=== PATIENT | female | born 1990 | race Caucasian/White ===

== ENCOUNTER 2017-05-14 06:06 | Inpatient (IN) | payer OTHER ==
[2017-05-14] MEDS ORDERED: ELECTROLYTE-148 SOLN 1,000 ML IV SCH ×3 (06:10→08:30)
[2017-05-14 06:48] VITALS: BMI 35.8
[2017-05-14] MEDS ORDERED: CITRIC ACID/SODIUM CITRATE 30 ML UNIT-DOSE CUP PO ONE (07:00)
[2017-05-14] MEDS ORDERED: ELECTROLYTE-148 SOLN 500 ML IV ONE (07:00)
[2017-05-14] MEDS ORDERED: morphine SULFATE/Preservative Free 0.5 MG/ML (1cc Syringe) ONE (08:16)
[2017-05-14] MEDS ORDERED: ceFAZolin SODIUM 1 GM VIAL ONE (08:17)
[2017-05-14] MEDS ORDERED: IBUPROFEN 600 MG TABLET (FP) PO PRN (08:20)
[2017-05-14] MEDS ORDERED: IBUPROFEN 800 MG/8 ML IJ IVPB PRN (08:20)
[2017-05-14] MEDS ORDERED: METHYLERGONOVINE MALEATE 0.2 MG/1 ML AMP IM PRN (08:20)
--- NOTE | 2017-05-14 08:30 | HP ---
Past Medical History - Primary Care Physician PCP:: Danyell Kang - Admission Chief Complaint: Cholestatis. Prev Section X2 History of Present Illness: 26 yo with prev CS x2 Cholestasis of c/o itching MFM recomended delivery yester after rising bile salts HIV neg GBS History Source: Patient - Past Medical History ...: 3 ...Para: 2 ...Term: 0 ...: 2 ...Spon : 0 ...Induced : 0 ...Multiple Gestation: 0 ...LMP: 10/05/16 ...EDC by Sono: 05/25/17 - Past Surgical History Past Surgical History: Yes: Hx Myomectomy: No Hx Transabdominal Cerclage: No - Smoking History Smoking history: Never smoked Have you smoked in the past 12 months: No - Alcohol/Substance Use Hx Alcohol Use: No - Social History Usual Living Arrangement: Yes: With Spouse History of Recent Travel: No Home Medications - Allergies Allergies/Adverse Reactions: Allergies Allergy/AdvReac Type Severity Reaction Status Date / Time No Known Allergies Allergy Verified 05/14/17 06:31 - Home Medications Home Medications: Ambulatory Orders Aspirin [Adult Aspirin Regimen] 81 mg PO DAILY 05/12/17 Vit/Iron Fum/Folic AC [ Tablet] 1 each PO DAILY 05/14/17 Physical Exam - Maternity Vital Signs: Vital Signs Temperature 98.2 F 05/14/17 06:38 Pulse Rate 87 05/14/17 06:38 Respiratory Rate 20 05/14/17 06:38 Blood Pressure 127/78 05/14/17 06:38 O2 Sat by Pulse Oximetry (%) Constitutional: Yes: Well Nourished, No Distress Problem List - Problems (1) Cholestasis during in third trimester Code(s): O26.613 - LIVER AND BILIARY TRACT DISORD IN , THIRD TRIMESTER ; K83.1 - OBSTRUCTION OF BILE DUCT (2) Previous delivery, antepartum Code(s): O34.219 - MATERNAL CARE FOR UNSP TYPE SCAR FROM PREVIOUS DEL Assessment/Plan Cholestasis IUp at 38.4 Previous CS x2 multiparitity voluntary sterilization Plan Repeat CS bilateral Salpingectomy
[2017-05-14] MEDS ORDERED: OXYTOCIN 10 UNITS/ML VIAL ONE ×2 (08:36→08:49)
[2017-05-14] MEDS ORDERED: ACETAMINOPHEN 1000 MG/100 ML VIAL (NON FORMULARY) IVPB PRN (09:21)
[2017-05-14 09:28] LABS: ARTERIAL BLOOD GAS PCO2 51.4 mmHg (35-45); ARTERIAL BLOOD GAS PO2 23.3 mmHg (80-100); ARTERIAL BLOOD GAS pH 7.28 (7.35-7.45)
[2017-05-14 09:29] LABS: ALLENS TEST POSITIVE; ARTERIAL BLD GAS O2 SATURATION 47.4 % (90-98.9); ARTERIAL BLOOD GAS BASE EXCESS -3.3 meq/l (-2-2)
[2017-05-14 09:30] LABS: VENOUS PH 7.33 (7.32-7.42); VENOUS PO2 26.7 mmHg (28-48)
[2017-05-14] MEDS ORDERED: TUBERCULIN PPD 5 TU/0.1ML SYRINGE (IN PATIENT USE ONLY) ID ONE (10:00)
[2017-05-14] MEDS ORDERED: OXYTOCIN 20 UNITS in 0.9% NS 20 UNIT/1,000 ML INFUS.BAG IV ONE (10:29)
[2017-05-14] MEDS: OXYTOCIN 20 UNITS in 0.9% NS 20 UNIT/1,000 ML INFUS.BAG IV SCH ×2 (10:30→18:45)
--- NOTE | 2017-05-14 10:45 | OP ---
DATE OF OPERATION: 05/14/2017 PREOPERATIVE DIAGNOSES: 1. Cholestasis, intrauterine at 38.4 weeks, and previous section x2. 2. Voluntary sterilization, multiparity. OPERATION: Repeat section and bilateral salpingectomy. SURGEON: Danyell Kang MD OFFICE AUDITOR: ARIA Mcnamara; MD unavailable. ANESTHESIA: Spinal. ANESTHESIOLOGIST: Guille Madera MD FINDINGS: Live female infant delivered. DESCRIPTION OF PROCEDURE: Patient was taken to the operating room, placed in supine position, prepped and draped in the usual sterile fashion. Timeout was performed in accordance with hospital regulation. Scalpel was then used to remove the patient's previous scar and make a Pfannenstiel skin incision. Cautery was then used to go through the layers of abdominal wall to the level of the fascia. Fascia was cut in the midline, and cautery was then used to open the fascia in the following fashion. Freya was then used to bluntly and sharply dissect the rectus muscle off the fascia. Muscles split in the midline. Peritoneal cavity was then entered and carried upward and downward. Bladder retractor was then placed. Vesicouterine reflection was then entered. Bladder was bluntly dissected out of the operative field. Scalpel was then used to make a low transverse uterine incision. Incision was carried upward using bandage scissors. A live female infant was delivered in OT position. Nose and mouth suction performed. Shoulders were delivered without difficulty. Cord was clamped and cut. Cord pH obtained. Cord blood obtained. was handed to staff development coordinator rn. Uterus exteriorized and cleaned with clean laparotomy pad. Uterine incision closed using 0 Biosyn suture, first layer of continuous and locking, second layer imbricating the first layer. Hemostasis was achieved. Tubes were noted to be bilaterally normal. LigaSure was then used to bilaterally perform a salpingectomy, making sure to coagulate the ends where the uterus was for further hemostasis. After hemostasis was achieved and bilateral salpingectomy performed, uterus interiorized. Tubes' removal incision site was then checked bilaterally. Abdominal sweep done. Peritoneum closed using 0 Biosyn suture. Fascia was then closed using 0 Vicryl suture in 2 parts. Subcutaneous was then closed using 0 Biosyn suture in a continuous fashion. Skin was then closed using 3-0 Vicryl in subcuticular fashion. Wound was washed and dressed. Estimated blood loss: 500 mL. Steri-Strips placed. Patient tolerated the procedure well, was taken to recovery room in stable condition. Mayco [id number] MTDD
--- NOTE | 2017-05-14 11:06 | OP ---
Operative Note - Note: Operative Date: 05/14/17 Pre-Operative Diagnosis: Cholestasis. Previous CS X 2. voluntary sterilization. multiparity. IUP at 38.4 weeks Operation: Repeat Section. Bilateral salpingectomy. lysis of adhesions Findings: Live female infant normal fallopian tubes and ovaries Post-Operative Diagnosis: Same as Pre-op Surgeon: Danyell Kang Supervisor Boat Outfitting: Armand Ferguson Anesthesiologist/BRAZE OPERATOR: Guille Madera Anesthesia: Spinal Estimated Blood Loss (mls): 500 Operative Report Dictated: Yes
[2017-05-14] MEDS: ONDANSETRON 4 MG/2 ML VIAL IVPUSH PRN ×2 (13:01→19:59)
[2017-05-14] MEDS: METOCLOPRAMIDE HCL INJECTION 10 MG/2 ML VIAL IVPUSH PRN ×2 (15:22→21:54)
[2017-05-15 08:15] LABS: BASO % 0.2 % (0-2.0); EOS % 0.3 % (0-4.5); HEMATOCRIT 23.8 % (32.4-45.2); HEMOGLOBIN 7.5 GM/dL (10.7-15.3); LYMPH % 19.2 % (8-40); MCHC 31.7 g/dl (32.0-36.0); MEAN CELL VOLUME 69.5 fl (80-96); MEAN PLT VOLUME 8.7 fl (7.5-11.1); MONO % 5.6 % (3.8-10.2); NEUT % 74.7 % (42.8-82.8); PLATELET COUNT 165 K/MM3 (134-434); RBC 3.42 M/mm3 (3.60-5.2); RDW 17.3 % (11.6-15.6); WHITE BLOOD COUNT 10.3 K/mm3 (4.0-10.0)
[2017-05-15] MEDS ORDERED: oxyCODONE HCL 5 MG TABLET PO PRN (08:20)
[2017-05-15] MEDS: oxyCODONE HCL 5 MG TABLET PO PRN ×2 (08:26→14:19)
[2017-05-15] MEDS: SIMETHICONE 80 MG TAB.CHEW (FP) PO PRN ×3 (08:27→19:55)
[2017-05-15] MEDS: PRENATAL VITAMINS W/ FOLIC ACID TABLET (FP) PO SCH (09:15)
[2017-05-15] MEDS: FERROUS SO4 325 MG TABLET (FP) PO SCH ×2 (09:15→21:59)
--- NOTE | 2017-05-15 09:24 | PN ---
Progress Note (SOAP) - Subjective Chief Complaint: Pt doing well - Current Medications Current Medications: Active Medications Bisacodyl (Dulcolax Suppository -) 10 mg RC PRN PRN PRN Reason: CONSTIPATION Diphenhydramine HCl (Benadryl Injection -) 25 mg IVPUSH Q4H PRN PRN Reason: FOR ITCHING Diphtheria/Tetanus/Acell Pertussis (Boostrix -) 0.5 ml IM .ONCE ONE Stop: 05/15/17 09:01 Ferrous Sulfate (Feosol -) 325 mg PO BID [facility] Last Admin: 05/15/17 09:15 Dose: Not Given Parenteral Electrolytes (Plasma-Lyte 148 -) 1,000 mls @ 125 mls/hr IV ASDCOUNTS INCLUDE 234 BEDS AT THE [facility] Last Admin: 05/14/17 07:30 Dose: 125 mls/hr Oxytocin/Sodium Chloride (Normal Saline+20 Units Oxytocin -) 20 unit in 1,000 mls @ 125 mls/hr IV ASDCOUNTS INCLUDE 234 BEDS AT THE [facility] Last Admin: 05/14/17 18:45 Dose: 125 mls/hr Parenteral Electrolytes (Plasma-Lyte 148 -) 1,000 mls @ 125 mls/hr IV [facility] Methylergonovine Maleate (Methergine Injection -) 0.2 mg IM Q4H PRN PRN Reason: Excessive Bleeding (L&D) Metoclopramide HCl (Reglan Injection -) 10 mg IVPUSH Q8H PRN PRN Reason: NAUSEA AND/OR VOMITING Last Admin: 05/14/17 21:54 Dose: 10 mg Oxycodone HCl (Roxicodone -) 5 mg PO Q4H PRN PRN Reason: PAIN LEVEL 4 - 6 Last Admin: 05/15/17 08:26 Dose: 5 mg Oxycodone HCl (Roxicodone -) 10 mg PO Q4H PRN PRN Reason: PAIN LEVEL 7 - 10 Multivit/Folic Acid/Iron ( Vitamins (Sjr) -) 1 tab PO DAILY [facility] Last Admin: 05/15/17 09:15 Dose: Not Given Simethicone (Mylicon -) 80 mg PO Q4H PRN PRN Reason: GAS Last Admin: 05/15/17 08:27 Dose: 80 mg - Objective Vital Signs: Vital Signs Temperature 98.8 F 05/15/17 06:00 Pulse Rate 76 05/15/17 06:00 Respiratory Rate 18 05/15/17 06:00 Blood Pressure 127/71 05/15/17 06:00 O2 Sat by Pulse Oximetry (%) 100 05/14/17 10:50 Constitutional: Yes: Well Nourished, No Distress Gastrointestinal: Yes: WNL, Soft, Abdomen, Obese ....Post : Yes: Uterus firm, Uterus non-tender Musculoskeletal: Yes: WNL Extremities: Yes: WNL Edema: No Wound/Incision: Yes: Clean/Dry, Well Approximated, Steri Strips, Open to air, Dressing Removed Labs Lab Results: CBC, BMP 05/15/17 07:30 Problem List - Problems (1) Cholestasis during in third trimester Code(s): O26.613 - LIVER AND BILIARY TRACT DISORD IN , THIRD TRIMESTER ; K83.1 - OBSTRUCTION OF BILE DUCT (2) Previous delivery, antepartum Code(s): O34.219 - MATERNAL CARE FOR UNSP TYPE SCAR FROM PREVIOUS DEL Assessment/Plan SP CS POD1 Stable anemia Plan OOB percocet
--- NOTE | 2017-05-15 09:40 | PN ---
Progress Note (short form) - Note Progress Note: Anesthesia/pain Pt seen and examined S:alert and awake comfortable O: Vital Signs Temperature 98.8 F 05/15/17 06:00 Pulse Rate 76 05/15/17 06:00 Respiratory Rate 18 05/15/17 06:00 Blood Pressure 127/71 05/15/17 06:00 O2 Sat by Pulse Oximetry (%) 100 05/14/17 10:50 CBC, BMP 05/15/17 07:30 A/P: Current Active Problems Cholestasis during in third trimester (Acute) Previous delivery, antepartum (Acute) s/p c section Doing well post op Continue current care Luis Cesar MD
[2017-05-15] MEDS ORDERED: DIPHTH,PERTUSS(ACELL),TET 0.5 ML DISP.SYRIN IM ONE (16:30)
[2017-05-15] MEDS: DOCUSATE SODIUM 100 MG CAPSULE (FP) PO PRN (17:55)
[2017-05-15] MEDS: BISACODYL 10 MG SUPP.RECT RC PRN (21:50)
[2017-05-16] MEDS: FERROUS SO4 325 MG TABLET (FP) PO SCH ×2 (09:43→21:39)
[2017-05-16] MEDS: PRENATAL VITAMINS W/ FOLIC ACID TABLET (FP) PO SCH (09:43)
[2017-05-16] MEDS: SIMETHICONE 80 MG TAB.CHEW (FP) PO PRN ×2 (12:55→17:42)
[2017-05-16] MEDS: oxyCODONE HCL 5 MG TABLET PO PRN ×2 (12:55→17:41)
--- NOTE | 2017-05-16 23:41 | PN ---
Progress Note (SOAP) - Subjective Chief Complaint: Pt doing well - Current Medications Current Medications: Active Medications Bisacodyl (Dulcolax Suppository -) 10 mg RC PRN PRN PRN Reason: CONSTIPATION Last Admin: 05/15/17 21:50 Dose: 10 mg Diphenhydramine HCl (Benadryl Injection -) 25 mg IVPUSH Q4H PRN PRN Reason: FOR ITCHING Docusate Sodium (Colace -) 100 mg PO BID PRN PRN Reason: CONSTIPATION Last Admin: 05/15/17 17:55 Dose: 100 mg Ferrous Sulfate (Feosol -) 325 mg PO BID [facility] Last Admin: 05/16/17 21:39 Dose: 325 mg Parenteral Electrolytes (Plasma-Lyte 148 -) 1,000 mls @ 125 mls/hr IV [facility]IR [facility] Last Admin: 05/14/17 07:30 Dose: 125 mls/hr Oxytocin/Sodium Chloride (Normal Saline+20 Units Oxytocin -) 20 unit in 1,000 mls @ 125 mls/hr IV ASDIR [facility] Last Admin: 05/14/17 18:45 Dose: 125 mls/hr Parenteral Electrolytes (Plasma-Lyte 148 -) 1,000 mls @ 125 [facility]ls[facility] Methylergonovine Maleate (Methergine Injection -) 0.2 mg IM Q4H PRN PRN Reason: Excessive Bleeding (L&D) Metoclopramide HCl (Reglan Injection -) 10 mg IVPUSH Q8H PRN PRN Reason: NAUSEA AND/OR VOMITING Last Admin: 05/14/17 21:54 Dose: 10 mg Oxycodone HCl (Roxicodone -) 5 mg PO Q4H PRN PRN Reason: PAIN LEVEL 4 - 6 Last Admin: 05/16/17 17:41 Dose: 5 mg Oxycodone HCl (Roxicodone -) 10 mg PO Q4H PRN PRN Reason: PAIN LEVEL 7 - 10 Last Admin: 05/15/17 19:55 Dose: 10 mg Multivit/Folic Acid/Iron ( Vitamins (Sjr) -) 1 tab PO DAILY [facility] Last Admin: 05/16/17 09:43 Dose: 1 tab Simethicone (Mylicon -) 80 mg PO Q4H PRN PRN Reason: GAS Last Admin: 05/16/17 17:42 Dose: 80 mg - Objective Vital Signs: Vital Signs Temperature 97.8 F 05/16/17 22:00 Pulse Rate 75 05/16/17 22:00 Respiratory Rate 18 05/16/17 22:00 Blood Pressure 133/85 05/16/17 22:00 O2 Sat by Pulse Oximetry (%) 100 05/14/17 10:50 Constitutional: Yes: Well Nourished, No Distress Respiratory: Yes: WNL Gastrointestinal: Yes: WNL, Normal Bowel Sounds ....Post : Yes: Uterus firm, Uterus non-tender Breast(s): Yes: WNL Musculoskeletal: Yes: WNL Extremities: Yes: WNL Edema: Yes Wound/Incision: Yes: Clean/Dry, Well Approximated Neurological: Yes: WNL, Alert, Oriented Labs Lab Results: CBC, BMP 05/15/17 07:30 Problem List - Problems (1) Cholestasis during in third trimester Code(s): O26.613 - LIVER AND BILIARY TRACT DISORD IN , THIRD TRIMESTER ; K83.1 - OBSTRUCTION OF BILE DUCT (2) Previous delivery, antepartum Code(s): O34.219 - MATERNAL CARE FOR UNSP TYPE SCAR FROM PREVIOUS DEL (3) Anemia, Code(s): O90.81 - ANEMIA OF THE PUERPERIUM Assessment/Plan SP CS POD 2 Stable anemia Plan OOB percocet
[2017-05-17 08:27] LABS: BASO % 0.4 % (0-2.0); EOS % 2.3 % (0-4.5); HEMATOCRIT 25.1 % (32.4-45.2); HEMOGLOBIN 7.7 GM/dL (10.7-15.3); LYMPH % 30.6 % (8-40); MCH 21.7 pg (25.7-33.7); MCHC 30.7 g/dl (32.0-36.0); MEAN CELL VOLUME 70.4 fl (80-96); MEAN PLT VOLUME 8.5 fl (7.5-11.1); MONO % 5.1 % (3.8-10.2); NEUT % 61.6 % (42.8-82.8); PLATELET COUNT 179 K/MM3 (134-434); RBC 3.56 M/mm3 (3.60-5.2); RDW 17.8 % (11.6-15.6); WHITE BLOOD COUNT 8.3 K/mm3 (4.0-10.0)
[2017-05-17] MEDS ORDERED: ACETAMINOPHEN 325 MG TABLET (FP) ONE (09:11)
[2017-05-17] MEDS: SIMETHICONE 80 MG TAB.CHEW (FP) PO PRN ×2 (09:27→18:45)
[2017-05-17] MEDS: FERROUS SO4 325 MG TABLET (FP) PO SCH ×2 (09:27→22:30)
[2017-05-17] MEDS: ACETAMINOPHEN 325 MG TABLET (FP) PO PRN ×2 (09:27→18:45)
[2017-05-17] MEDS: PRENATAL VITAMINS W/ FOLIC ACID TABLET (FP) PO SCH (09:28)
[2017-05-17] MEDS: oxyCODONE HCL 5 MG TABLET PO PRN (09:28)
[2017-05-17] MEDS: IBUPROFEN 600 MG TABLET (FP) PO PRN (18:45)
[2017-05-17] MEDS: DOCUSATE SODIUM 100 MG CAPSULE (FP) PO PRN (22:30)
--- NOTE | 2017-05-17 23:25 | PN ---
Progress Note (SOAP) - Subjective Chief Complaint: Pt doing good - Current Medications Current Medications: Active Medications Acetaminophen (Tylenol -) 650 mg PO Q4H PRN PRN Reason: PAIN 1-10 Last Admin: 05/17/17 18:45 Dose: 650 mg Bisacodyl (Dulcolax Suppository -) 10 mg RC PRN PRN PRN Reason: CONSTIPATION Last Admin: 05/15/17 21:50 Dose: 10 mg Diphenhydramine HCl (Benadryl Injection -) 25 mg IVPUSH Q4H PRN PRN Reason: FOR ITCHING Docusate Sodium (Colace -) 100 mg PO BID PRN PRN Reason: CONSTIPATION Last Admin: 05/17/17 22:30 Dose: 100 mg Ferrous Sulfate (Feosol -) 325 mg PO BID [facility] Last Admin: 05/17/17 22:30 Dose: 325 mg Ibuprofen (Motrin -) 600 mg PO Q4H PRN PRN Reason: PAIN 1-10 Last Admin: 05/17/17 18:45 Dose: 600 mg Methylergonovine Maleate (Methergine Injection -) 0.2 mg IM Q4H PRN PRN Reason: Excessive Bleeding (L&D) Metoclopramide HCl (Reglan Injection -) 10 mg IVPUSH Q8H PRN PRN Reason: NAUSEA AND/OR VOMITING Last Admin: 05/14/17 21:54 Dose: 10 mg Oxycodone HCl (Roxicodone -) 5 mg PO Q4H PRN PRN Reason: PAIN LEVEL 4 - 6 Last Admin: 05/17/17 09:28 Dose: 5 mg Oxycodone HCl (Roxicodone -) 10 mg PO Q4H PRN PRN Reason: PAIN LEVEL 7 - 10 Last Admin: 05/15/17 19:55 Dose: 10 mg Multivit/Folic Acid/Iron ( Vitamins (Sjr) -) 1 tab PO DAILY [facility] Last Admin: 05/17/17 09:28 Dose: 1 tab Simethicone (Mylicon -) 80 mg PO Q4H PRN PRN Reason: GAS Last Admin: 05/17/17 18:45 Dose: 80 mg - Objective Vital Signs: Vital Signs Temperature 98.3 F 05/17/17 08:36 Pulse Rate 75 02/24/18 08:36 Respiratory Rate 18 05/17/17 08:36 Blood Pressure 131/84 05/17/17 08:36 O2 Sat by Pulse Oximetry (%) 100 05/17/17 08:35 Constitutional: Yes: Well Nourished, No Distress Cardiovascular: Yes: WNL Respiratory: Yes: WNL Gastrointestinal: Yes: WNL, Normal Bowel Sounds, Soft ....Post : Yes: Uterus firm, Uterus non-tender Musculoskeletal: Yes: WNL Extremities: Yes: WNL Wound/Incision: Yes: Clean/Dry, Well Approximated, Steri Strips, Open to air Neurological: Yes: WNL, Alert Labs Lab Results: CBC, BMP 05/17/17 07:20 Problem List - Problems (1) Cholestasis during in third trimester Code(s): O26.613 - LIVER AND BILIARY TRACT DISORD IN , THIRD TRIMESTER ; K83.1 - OBSTRUCTION OF BILE DUCT (2) Previous delivery, antepartum Code(s): O34.219 - MATERNAL CARE FOR UNSP TYPE SCAR FROM PREVIOUS DEL (3) Anemia, Code(s): O90.81 - ANEMIA OF THE PUERPERIUM Assessment/Plan POD 3 Stable +flatus +BM Plan Continue present management percocet
[2017-05-17] MEDS: BISACODYL 10 MG SUPP.RECT RC PRN (23:32)
[2017-05-18] MEDS: SIMETHICONE 80 MG TAB.CHEW (FP) PO PRN (08:05)
[2017-05-18] MEDS: ACETAMINOPHEN 325 MG TABLET (FP) PO PRN (08:05)
[2017-05-18] MEDS: IBUPROFEN 600 MG TABLET (FP) PO PRN (08:06)
--- NOTE | 2017-05-18 08:26 | DS ---
Physical Exam-HEEL LIFT GOUGER Vital Signs: Vital Signs Temperature 98.0 F 05/17/17 22:00 Pulse Rate 70 05/17/17 22:00 Respiratory Rate 18 05/17/17 22:00 Blood Pressure 123/75 05/17/17 22:00 O2 Sat by Pulse Oximetry (%) 100 05/17/17 08:35 Constitutional: Yes: Well Nourished, No Distress Neck: Yes: WNL Cardiovascular: Yes: WNL Respiratory: Yes: WNL Gastrointestinal: Yes: WNL, Normal Bowel Sounds, Soft, Abdomen, Obese ....Post : Yes: Uterus firm, Uterus non-tender, Slight lochia rubra Breast(s): Yes: WNL Musculoskeletal: Yes: WNL Extremities: Yes: WNL Edema: Yes Edema: LLE: Trace, RLE: Trace Wound/Incision: Yes: Clean/Dry, Well Approximated, Steri Strips Neurological: Yes: WNL, Alert, Oriented Labs: CBC, BMP 05/17/17 07:20 Delivery - Delivery Section: Repeat, Low Flap Transverse Type of Anesthesia: Spinal Episiotomy/Laceration: None EBL (cc): 500 Delivery, Single - Stages of Labor Date of Delivery: 05/14/17 Time of Delivery: 08:45 Time Placenta Delivered: 08:46 Placenta: Yes: Manual Removal - Condition of Brine Supervisor/Deputy District Customs Director Present: No Gender: Female Weight: 7 lb 3 oz Position: OT Total Hours ROM (Hrs/Mins): 0/2 - 1 Minute Total Score: 8 5 Minutes Total Score: 9 - [place] Feeding Plan Initial Plan: Elected not to breastfeed exclusively throughout hospitalization Discharge Summary Reason For Visit: ADMIT C/SECTION Current Active Problems Anemia, (Acute) Cholestasis during in third trimester (Acute) Previous delivery, antepartum (Acute) Procedures: Principal: Repeat sECTION Other Procedures: Bilateral salpingectomy Condition: Good - Instructions Diet, Activity, Other Instructions: Dr. Danyell Kang [employer] discharge instructions Physical activity Resume your normal everyday activity as tolerated no heavy lifting or exercise until seen by your surgeon. You may walk unlimited cecil of and climb stairs. You may resume driving the car when you feel safe and comfortable behind the wheel. No sexual activity as instructed by Dr. Kang. Wound care If you have a bandage, leave it on, and keep dry for 48-72 hours. After that time discard the outer bandage. If they are tapes on the skin under the out of bandage leave them in place. They will peel off in the next 7 to 10 days. Do Not Peel them off. You may shower the day after surgery. If there are tapes present on the skin, you may shower over them. Diet There are no dietary restrictions. Eat healthy, high-fiber foods. Drink 6 to 8 glasses of liquid each day. This will assist in keeping your bowels are regular. Pain management You may take Tylenol or acetaminophen or Ibuprofen (for example, Motrin, Advil etc.) from my pain prescription medication is ordered should be taken as prescribed for moderate to severe pain. Call Dr. Kang for any of the following: Severe pain not relieved by medication Fever of 101 or higher Excessive bleeding or drainage on dressing Inability to urinate Call the office at [phone] for an appointment in seven days. Referrals: Danyell Kang MD [Staff Physician] - Disposition: HOME - Home Medications Comprehensive Discharge Medication List: Ambulatory Orders Aspirin [Adult Aspirin Regimen] 81 mg PO DAILY 05/12/17 Ferrous Sulfate [Feosol] 325 mg PO TID #21 tablet 05/14/17 Vit/Iron Fum/Folic AC [ Tablet] 1 each PO DAILY 05/14/17 Ibuprofen [Motrin -] 600 mg PO QID #28 tablet 05/17/17 Oxycodone HCl/Acetaminophen [Percocet 5-325 mg Tablet] 1 - 2 tab PO Q6H #20 tab MDD 6 05/17/17
[2017-05-18] MEDS: FERROUS SO4 325 MG TABLET (FP) PO SCH (09:12)
[2017-05-18] MEDS: PRENATAL VITAMINS W/ FOLIC ACID TABLET (FP) PO SCH (09:12)
[2017-05-18 10:10] VITALS: BP 117/70; PULSE 71; TEMP 97.7
--- NOTE | 2017-05-19 16:16 | PATH ---
Surgical Pathology Report Patient Name: POORNIMA MICHAELS [facility]. Rec. #: [id number] /Age/Gender: 1990 (Age: 26) / F Account: [id number] Location: [facility] OBS/BORING MILL SET UP OPERATOR VERTICAL Taken: 05/14/2017 Received: 05/15/2017 Reported: 05/19/2017 Physicians: Danyell Kang M.D. Specimen(s) Received A: PLACENTA B: RIGHT FALLOPIAN TUBE C: LEFT FALLOPIAN TUBE Clinical History , 38.4 weeks For repeat and bilateral salpingectomy, cholestasis of , multiparity Final Diagnosis A. PLACENTA, SECTION: 551 g THIRD TRIMESTER PLACENTA WITH TRIVASCULAR UMBILICAL CORD AND UNREMARKABLE PLACENTAL MEMBRANES. B. FALLOPIAN TUBE, RIGHT, SALPINGECTOMY: FULL LUMINAL PORTION OF FALLOPIAN TUBE WITH VASCULAR CONGESTION. C. FALLOPIAN TUBE, LEFT, SALPINGECTOMY: FULL LUMINAL PORTION OF FALLOPIAN TUBE WITH VASCULAR CONGESTION. Electronically Signed Jeanie Moura M.D. Gross Description A. The specimen is received fresh labeled placenta and is a 551 gram, 16.5 x 15.0 x 2.8 cm. placenta with attached membranes and umbilical cord. The attached membranes are paez, translucent with focal opacities and insert marginally. The umbilical cord measures 14 cm. in length and averages 1.3 cm. in diameter. The cord inserts eccentrically, 5.5 cm. to the nearest margin. No true knots or strictures are identified. Cut surface of the umbilical cord reveals 3 vessels. The surface is lin blue with abundant fibrin deposition and appropriate caliber vessels. The maternal surface is red-brown with focal defects. Sectioning reveals red-brown, spongy parenchyma. No lesions are identified. Distributor Publications sections are submitted in three cassettes as follows: 1- membrane rolls and umbilical cord; 2-3- full thickness sections of placenta. B. Received in formalin labeled "right fallopian tube," is a 6.5 cm in length fimbriated fallopian tube. The outer surface is paez-brown and smooth. Sectioning reveals unremarkable lumen. Distributor [employer] sections are submitted in 2 cassettes as follows: 1-fimbria; 2-cross sections of fallopian tube. C. Received in formalin labeled "left fallopian tube," is a 4.5 cm in length fimbriated fallopian tube. The outer surface is lin purple and smooth. Sectioning reveals unremarkable lumen. Distributor Publications sections are submitted in 2 cassettes as follows: 1-fimbria; 2-cross sections of fallopian tube. 05/16/2017 [facility]05/16/2017
== END 2017-05-18 12:30 | disposition home or self-care (01) | DRG 540 ==
LOC: JERBED 06:06 → JLDR 06:29 → J3W 11:28
PROVIDERS: ADMIT Obstetrics & Gynecology; ATTEND Obstetrics & Gynecology
PROC: 10D00Z1 Extraction of Products of Conception, Low, Open Approach (ICD-10-PCS; principal; 2017-05-14)
PROC: 0UT70ZZ Resection of Bilateral Fallopian Tubes, Open Approach (ICD-10-PCS; 2017-05-14)
DX: O34.211 Maternal care for low transverse scar from previous cesarean delivery (principal); O26.613 Liver and biliary tract disorders in pregnancy, third trimester; K83.1 Obstruction of bile duct; O99.02 Anemia complicating childbirth; D64.9 Anemia, unspecified; Z3A.38 38 weeks gestation of pregnancy; Z37.0 Single live birth; Z30.2 Encounter for sterilization
CPT/HCPCS: 36415; 36600; 82803; 85025; 88302-TC; 88307-TC; 90715